=== PATIENT | male | born 1940 | race Caucasian/White ===

== ENCOUNTER 2024-05-24 15:30 | Emergency (ER) | payer MEDICARE, OTHER ==
[2024-05-24 16:43] LABS: BASOPHILS ABSOLUTE AUTO 0.04 K/uL (0.00-0.10); BASOPHILS PERCENT AUTO 0.4 % (0.1-1.3); EOSINOPHILS ABSOLUTE AUTO 0.14 K/uL (0.00-0.40); EOSINOPHILS PERCENT AUTO 1.5 % (0.0-5.4); HEMATOCRIT 39.7 % (38.4-49.7); HEMOGLOBIN 13.8 g/dL (12.9-16.9); IMMATURE GRAN ABSOLUTE AUTO 0.09 K/uL (0.00-0.23); LYMPHOCYTES PERCENT AUTO 23.7 % (11.4-47.7); MEAN CORPUSCULAR HEMOGLOBIN 31.7 pg (31.6-35.5); MEAN CORPUSCULAR HGB CONC 34.8 g/dL (31.6-35.5); MEAN CORPUSCULAR VOLUME 91.3 fL (81.4-99.0); MONOCYTES ABSOLUTE AUTO 0.85 K/uL (0.20-0.90); MONOCYTES PERCENT AUTO 9.2 % (3.3-12.6); NEUTROPHILS ABSOLUTE AUTO 5.95 K/uL (1.0-7.6); NEUTROPHILS PERCENT AUTO 64.2 % (40.0-78.1); PLATELET COUNT,PLT 152 K/uL (130-375); RED BLOOD CELL COUNT 4.35 M/uL (4.14-5.76); WHITE BLOOD CELL COUNT,WBC 9.3 K/uL (3.2-11.0)
[2024-05-24 16:54] LABS: ANION GAP 12.4 mmol/L (5.0-14.0); CALCIUM 8.8 mg/dL (8.5-10.1); CREATININE 1.4 mg/dL (0.8-1.3); EST CRCL DRUG DOSING (CG) 36.07 mL/min; POTASSIUM,K 4.4 mmol/L (3.6-5.2); TROPONIN I HIGH SENSITIVITY 9.9 pg/mL (<=60.3)
== END 2024-05-24 20:00 | disposition other institution (70) ==
LOC: JP.ED 15:30
DX: I44.2 Atrioventricular block, complete (principal); I10 Essential (primary) hypertension; E78.00 Pure hypercholesterolemia, unspecified; Z88.0 Allergy status to penicillin; Z91.040 Latex allergy status; Z88.8 Allergy status to other drugs, medicaments and biological substances; Z91.013 Allergy to seafood; Z79.82 Long term (current) use of aspirin; Z79.899 Other long term (current) drug therapy
CPT/HCPCS: 36415; 80048; 83735; 84484; 85025; 93005; 93010; 99285

== ENCOUNTER 2025-02-26 10:32 | Emergency (ER) | payer MEDICARE, MEDICAID ==
[2025-02-26] MEDS: Norepinephrine Bit/D5W Premix 4 MG in Premix Bag 1 BAG IV SCH (11:11)
[2025-02-26] MEDS: Sodium Chloride 0.9% 1,000 ML IV STA (11:12)
[2025-02-26 11:17] LABS: BASOPHILS ABSOLUTE AUTO 0.03 K/uL (0.00-0.10); BASOPHILS PERCENT AUTO 0.3 % (0.1-1.3); EOSINOPHILS ABSOLUTE AUTO 0.08 K/uL (0.00-0.40); EOSINOPHILS PERCENT AUTO 0.8 % (0.0-5.4); HEMOGLOBIN 8.1 g/dL (12.9-16.9); IMMATURE GRAN ABSOLUTE AUTO 0.07 K/uL (0.00-0.23); IMMATURE GRAN PERCENT AUTO 0.7 % (0.0-0.7); LYMPHOCYTES ABSOLUTE AUTO 1.67 K/uL (0.8-3.3); LYMPHOCYTES PERCENT AUTO 16.4 % (11.4-47.7); MEAN CORPUSCULAR HEMOGLOBIN 32.3 pg (31.6-35.5); MEAN CORPUSCULAR HGB CONC 32.4 g/dL (31.6-35.5); MEAN CORPUSCULAR VOLUME 99.6 fL (81.4-99.0); MONOCYTES ABSOLUTE AUTO 0.73 K/uL (0.20-0.90); MONOCYTES PERCENT AUTO 7.2 % (3.3-12.6); NEUTROPHILS ABSOLUTE AUTO 7.59 K/uL (1.0-7.6); NEUTROPHILS PERCENT AUTO 74.6 % (40.0-78.1); PLATELET COUNT,PLT 186 K/uL (130-375); RED BLOOD CELL COUNT 2.51 M/uL (4.14-5.76); WHITE BLOOD CELL COUNT,WBC 10.2 K/uL (3.2-11.0)
[2025-02-26 11:41] LABS: A/G RATIO 0.8 (1.2-2.2); ALANINE AMINOTRANSFERASE,ALT 22 U/L (12-78); ALBUMIN 2.4 g/dL (3.4-5.0); ALKALINE PHOSPHATASE 82 U/L (46-116); ASPARTATE AMNIOTRANSFERASE,AST 40 U/L (15-37); BILIRUBIN TOTAL 0.4 mg/dL (0.2-1.0); BLOOD UREA NITROGEN,BUN 49 mg/dL (7-18); CALCIUM 8.4 mg/dL (8.5-10.1); CARBON DIOXIDE,CO2 23 mmol/L (21-32); CHLORIDE,CL 106 mmol/L (100-108); CREATININE 1.8 mg/dL (0.8-1.3); EST CRCL DRUG DOSING (CG) 28.05 mL/min; ESTIMATED GFR 36 mL/min (>60); GLUCOSE RANDOM 168 mg/dL (74-106); POTASSIUM,K 4.5 mmol/L (3.6-5.2); PROTEIN TOTAL,TP 5.6 g/dL (6.4-8.2); SODIUM,NA 139 mmol/L (140-148)
[2025-02-26 11:44] LABS: ANION GAP 14.5 mmol/L (5.0-14.0)
[2025-02-26 12:06] LABS: APPEARANCE,URINE TURBID (CLEAR); BILIRUBIN,URINE NEGATIVE (NEGATIVE); COLOR,URINE YELLOW (YELLOW); GLUCOSE,URINE NEGATIVE (NEGATIVE); KETONES,URINE NEGATIVE (NEGATIVE); LEUKOCYTE ESTERASE,URINE LARGE (NEGATIVE); NITRITE,URINE NEGATIVE (NEGATIVE); OCCULT BLOOD,URINE MODERATE (NEGATIVE); PROTEIN,URINE 100 mg/dL (NEGATIVE); UROBILINOGEN,URINE 0.2 EU/dL (0.2-1.0)
[2025-02-26 12:21] LABS: AMORPHOUS SEDIMENT,URINE NOT SEEN; BACTERIA,URINE FEW; EPITHELIAL CELLS,URINE RARE; MUCUS,URINE NOT SEEN; RBC,URINE 20-30 (0-5); WBC,URINE >100 (0-5)
[2025-02-26] MEDS ORDERED: Cefepime 1 GM Vial IM ONE (12:25)
[2025-02-26] MEDS: Cefepime 1 GM in Sodium Chloride 0.9% 50 ML IV ONE (12:59)
== END 2025-02-26 13:05 ==
LOC: JP.ED 10:32
DX: I24.9 Acute ischemic heart disease, unspecified (principal); I10 Essential (primary) hypertension; E78.00 Pure hypercholesterolemia, unspecified; Z91.040 Latex allergy status; Z88.0 Allergy status to penicillin; Z91.018 Allergy to other foods; Z88.8 Allergy status to other drugs, medicaments and biological substances; Z91.013 Allergy to seafood; Z79.899 Other long term (current) drug therapy
CPT/HCPCS: 36415; 71045; 80053; 81001; 83605; 84484; 85025; 87040; 87086; 93005; 96361; 96365; 96366; 96374; 99285; J0692; J7030

== ENCOUNTER 2025-03-18 10:23 | Inpatient (IN) | payer MEDICARE, MEDICAID ==
[2025-03-18 10:36] LABS: BASOPHILS ABSOLUTE AUTO 0.03 K/uL (0.00-0.10); BASOPHILS PERCENT AUTO 0.2 % (0.1-1.3); EOSINOPHILS PERCENT AUTO 0.1 % (0.0-5.4); HEMATOCRIT 25.1 % (38.4-49.7); HEMOGLOBIN 7.9 g/dL (12.9-16.9); IMMATURE GRAN ABSOLUTE AUTO 0.09 K/uL (0.00-0.23); IMMATURE GRAN PERCENT AUTO 0.6 % (0.0-0.7); LYMPHOCYTES ABSOLUTE AUTO 0.33 K/uL (0.8-3.3); LYMPHOCYTES PERCENT AUTO 2.2 % (11.4-47.7); MEAN CORPUSCULAR HEMOGLOBIN 31.9 pg (31.6-35.5); MEAN CORPUSCULAR HGB CONC 31.5 g/dL (31.6-35.5); MEAN CORPUSCULAR VOLUME 101.2 fL (81.4-99.0); MONOCYTES ABSOLUTE AUTO 0.84 K/uL (0.20-0.90); MONOCYTES PERCENT AUTO 5.7 % (3.3-12.6); NEUTROPHILS PERCENT AUTO 91.2 % (40.0-78.1); PLATELET COUNT,PLT 166 K/uL (130-375); RED BLOOD CELL COUNT 2.48 M/uL (4.14-5.76); WHITE BLOOD CELL COUNT,WBC 14.8 K/uL (3.2-11.0)
[2025-03-18 10:39] LABS: EOSINOPHILS ABSOLUTE AUTO 0.01 K/uL (0.00-0.40)
[2025-03-18 11:02] LABS: A/G RATIO 0.5 (1.2-2.2); ALBUMIN 1.9 g/dL (3.4-5.0); BILIRUBIN DIRECT 0.73 mg/dL (0.0-0.2); BILIRUBIN INDIRECT 0.37; BILIRUBIN TOTAL 1.1 mg/dL (0.2-1.0); CALCIUM 7.7 mg/dL (8.5-10.1); EST CRCL DRUG DOSING (CG) 9.07 mL/min; POTASSIUM,K 4.6 mmol/L (3.6-5.2); PROTEIN TOTAL,TP 5.4 g/dL (6.4-8.2)
[2025-03-18 11:12] LABS: ANION GAP 17.6 mmol/L (5.0-14.0); C-REACTIVE PROTEIN 26.93 mg/dL (<0.50)
[2025-03-18] MEDS: Sodium Chloride 0.9% 1,000 ML IV ONE (11:13)
[2025-03-18 11:16] LABS: CREATININE 4.2 mg/dL (0.8-1.3); LACTIC ACID 2.9 mmol/L (0.4-2.0)
[2025-03-18] MEDS: cefTRIAXone 2 GM in Sodium Chloride 0.9% 50 ML IV ONE (11:36)
[2025-03-18 12:38] LABS: APPEARANCE,URINE CLOUDY (CLEAR); BILIRUBIN,URINE NEGATIVE (NEGATIVE); COLOR,URINE YELLOW (YELLOW); GLUCOSE,URINE 250 mg/dL (NEGATIVE); KETONES,URINE NEGATIVE (NEGATIVE); LEUKOCYTE ESTERASE,URINE LARGE (NEGATIVE); NITRITE,URINE NEGATIVE (NEGATIVE); OCCULT BLOOD,URINE LARGE (NEGATIVE); PH,URINE 5.5 (5.0-8.0); PROTEIN,URINE >=300 mg/dL (NEGATIVE); UROBILINOGEN,URINE 0.2 EU/dL (0.2-1.0)
[2025-03-18] MEDS: metroNIDAZOLE/Normal Saline 500 MG in Premix Bag 1 BAG IV ONE (12:40)
[2025-03-18 12:49] LABS: AMORPHOUS SEDIMENT,URINE FEW; BACTERIA,URINE MANY; EPITHELIAL CELLS,URINE NOT SEEN; MUCUS,URINE MANY; RBC,URINE 20-30 (0-5); WBC,URINE 75-100 (0-5)
[2025-03-18] MEDS: VANCOmycin 1 GM in Sodium Chloride 0.9% 250 ML IV ONE (13:28)
[2025-03-18] MEDS ORDERED: traZODone 50 MG Tab PO PRN (15:11)
[2025-03-18] MEDS ORDERED: LORazepam 2 MG/ML SDV IV PRN (15:11)
[2025-03-18] MEDS ORDERED: Sodium Chloride 0.9% 10 ML Syringe FLUSH PRN (15:11)
[2025-03-18] MEDS ORDERED: Albuterol 0.083% 2.5 MG/3 ML Neb Soln NEB PRN (15:11)
[2025-03-18] MEDS: Acetaminophen 325 MG Tab PO PRN (15:33)
[2025-03-18] MEDS: oxyCODONE 5 MG Tab PO PRN (15:33)
[2025-03-18] MEDS: Pantoprazole 40 MG Tab.CR PO SCH (16:27)
[2025-03-18] MEDS: Midodrine 5 MG Tab PO SCH (16:27)
[2025-03-18] MEDS: Doxycycline 100 MG in Sodium Chloride 0.9% 100 ML IV SCH (16:31)
[2025-03-18] MEDS: Sodium Chloride 0.9% 1,000 ML IV SCH (17:49)
[2025-03-18] MEDS: atorvaSTATin 20 MG Tab PO SCH (20:00)
[2025-03-18] MEDS: Gabapentin 100 MG Cap PO SCH (20:01)
[2025-03-18] MEDS ORDERED: Non-Formulary Medication 1 Each (Atorvastatin Calcium [Atorvastatin Calcium] 40 MG Tablet) PO SCH (21:00)
[2025-03-18] MEDS ORDERED: Memantine 5 MG Tab PO SCH (21:00)
[2025-03-19 05:48] LABS: HEMOGLOBIN 7.6 g/dL (12.9-16.9); MEAN CORPUSCULAR HEMOGLOBIN 31.9 pg (31.6-35.5); MEAN CORPUSCULAR HGB CONC 31.7 g/dL (31.6-35.5); MEAN CORPUSCULAR VOLUME 100.8 fL (81.4-99.0); RED BLOOD CELL COUNT 2.38 M/uL (4.14-5.76); WHITE BLOOD CELL COUNT,WBC 10.6 K/uL (3.2-11.0)
[2025-03-19 06:00] LABS: CALCIUM 7.5 mg/dL (8.5-10.1); EST CRCL DRUG DOSING (CG) 12.02 mL/min; MAGNESIUM 1.7 mg/dL (1.8-2.4); POTASSIUM,K 4.3 mmol/L (3.6-5.2)
[2025-03-19 06:09] LABS: ANION GAP 19.3 mmol/L (5.0-14.0)
[2025-03-19 06:10] LABS: CREATININE 4.2 mg/dL (0.8-1.3)
[2025-03-19] MEDS ORDERED: Sodium Chloride 0.9% 1,000 ML IV SCH (08:00)
[2025-03-19] MEDS: buPROPion 150 MG Tab.ER PO SCH (08:13)
[2025-03-19] MEDS: Polyethylene Glycol 3350 Powder 17 GM Packet PO PRN (08:14)
[2025-03-19] MEDS: Amiodarone 200 MG Tab PO SCH (08:14)
[2025-03-19] MEDS: Clopidogrel 75 MG Tab PO SCH (08:14)
[2025-03-19] MEDS ORDERED: Empagliflozin 10 MG Tab PO SCH (09:00)
[2025-03-19] MEDS ORDERED: Non-Formulary Medication 1 Each (Bupropion Hcl [Wellbutrin Xl] 300 MG Tab.Er.24h) PO SCH (09:00)
[2025-03-19] MEDS: Sodium Chloride 0.9% 1,000 ML IV SCH (10:17)
[2025-03-19] MEDS: Magnesium Sulfate 2 GM/50 mL 2 GM in Premix Bag 1 BAG IV SCH (10:17)
[2025-03-19] MEDS: cefTRIAXone 2 GM in Sodium Chloride 0.9% 50 ML IV SCH (11:42)
[2025-03-19] MEDS ORDERED: cefTRIAXone 1 GM in Sodium Chloride 0.9% 50 ML IV SCH (12:00)
[2025-03-19] MEDS: Magnesium Oxide 400 MG Tab PO SCH (20:24)
[2025-03-20 06:07] LABS: HEMATOCRIT 23.9 % (38.4-49.7); HEMOGLOBIN 7.6 g/dL (12.9-16.9); MEAN CORPUSCULAR HEMOGLOBIN 31.5 pg (31.6-35.5); MEAN CORPUSCULAR HGB CONC 31.8 g/dL (31.6-35.5); MEAN CORPUSCULAR VOLUME 99.2 fL (81.4-99.0); RED BLOOD CELL COUNT 2.41 M/uL (4.14-5.76)
[2025-03-20 06:26] LABS: CALCIUM 7.6 mg/dL (8.5-10.1); EST CRCL DRUG DOSING (CG) 14.03 mL/min; MAGNESIUM 1.9 mg/dL (1.8-2.4)
[2025-03-20 06:29] LABS: CREATININE 3.6 mg/dL (0.8-1.3)
[2025-03-20] MEDS: cefTRIAXone 2 GM in Sodium Chloride 0.9% 50 ML IV SCH (11:25)
[2025-03-21 06:00] LABS: HEMATOCRIT 24.1 % (38.4-49.7); HEMOGLOBIN 7.7 g/dL (12.9-16.9); MEAN CORPUSCULAR HEMOGLOBIN 31.4 pg (31.6-35.5); MEAN CORPUSCULAR VOLUME 98.4 fL (81.4-99.0); RED BLOOD CELL COUNT 2.45 M/uL (4.14-5.76); WHITE BLOOD CELL COUNT,WBC 7.2 K/uL (3.2-11.0)
[2025-03-21 06:17] LABS: CALCIUM 7.8 mg/dL (8.5-10.1); CREATININE 2.7 mg/dL (0.8-1.3); EST CRCL DRUG DOSING (CG) 18.65 mL/min; POTASSIUM,K 3.8 mmol/L (3.6-5.2)
[2025-03-21 06:21] LABS: ANION GAP 16.8 mmol/L (5.0-14.0)
[2025-03-21] MEDS ORDERED: Amiodarone 200 MG Tab PO SCH (09:00)
[2025-03-21] MEDS: Meropenem 500 MG in Sodium Chloride 0.9% 50 ML IV SCH (10:30)
[2025-03-22 05:48] LABS: HEMATOCRIT 25.5 % (38.4-49.7); HEMOGLOBIN 8.1 g/dL (12.9-16.9); MEAN CORPUSCULAR HEMOGLOBIN 31.3 pg (31.6-35.5); MEAN CORPUSCULAR HGB CONC 31.8 g/dL (31.6-35.5); MEAN CORPUSCULAR VOLUME 98.5 fL (81.4-99.0); RED BLOOD CELL COUNT 2.59 M/uL (4.14-5.76)
[2025-03-22 05:59] LABS: CALCIUM 8.1 mg/dL (8.5-10.1); CREATININE 2.4 mg/dL (0.8-1.3); EST CRCL DRUG DOSING (CG) 20.99 mL/min
[2025-03-22] MEDS: Amiodarone 200 MG Tab PO SCH (08:03)
[2025-03-23 05:57] LABS: HEMATOCRIT 26.4 % (38.4-49.7); HEMOGLOBIN 8.4 g/dL (12.9-16.9); MEAN CORPUSCULAR HEMOGLOBIN 31.3 pg (31.6-35.5); MEAN CORPUSCULAR HGB CONC 31.8 g/dL (31.6-35.5); MEAN CORPUSCULAR VOLUME 98.5 fL (81.4-99.0); RED BLOOD CELL COUNT 2.68 M/uL (4.14-5.76); WHITE BLOOD CELL COUNT,WBC 9.1 K/uL (3.2-11.0)
[2025-03-23 06:07] LABS: CALCIUM 8.3 mg/dL (8.5-10.1); CREATININE 1.9 mg/dL (0.8-1.3); EST CRCL DRUG DOSING (CG) 26.51 mL/min
[2025-03-23] MEDS: Meropenem 1 GM in Sodium Chloride 0.9% 100 ML IV SCH (10:56)
[2025-03-24 05:58] LABS: ANION GAP 9.6 mmol/L (5.0-14.0); CALCIUM 8.2 mg/dL (8.5-10.1); CREATININE 1.7 mg/dL (0.8-1.3); EST CRCL DRUG DOSING (CG) 29.63 mL/min
[2025-03-25 05:58] LABS: ANION GAP 9.5 mmol/L (5.0-14.0); CALCIUM 8.1 mg/dL (8.5-10.1); CREATININE 1.6 mg/dL (0.8-1.3); EST CRCL DRUG DOSING (CG) 31.48 mL/min
[2025-03-25] MEDS: Ertapenem 1 GM in Sodium Chloride 0.9% 50 ML IV SCH (09:37)
== END 2025-03-25 11:30 | DRG 871 ==
LOC: JP.ED 10:23 → JP.MS 13:42
PROVIDERS: ADMIT Hospitalist; ATTEND Internal Medicine
PROC: 3E03329 Introduction of Other Anti-infective into Peripheral Vein, Percutaneous Approach (ICD-10-PCS; principal; 2025-03-18)
PROC: 0T9B70Z Drainage of Bladder with Drainage Device, Via Natural or Artificial Opening (ICD-10-PCS; 2025-03-18)
PROC: 02HV33Z Insertion of Infusion Device into Superior Vena Cava, Percutaneous Approach (ICD-10-PCS; 2025-03-24)
DX: A41.9 Sepsis, unspecified organism (principal); I10 Essential (primary) hypertension; A41.51 Sepsis due to Escherichia coli [E. coli]; J18.9 Pneumonia, unspecified organism; Z91.013 Allergy to seafood; N17.9 Acute kidney failure, unspecified; N13.6 Pyonephrosis; Z91.09 Other allergy status, other than to drugs and biological substances; N13.8 Other obstructive and reflux uropathy; F03.93 Unspecified dementia, unspecified severity, with mood disturbance; F03.94 Unspecified dementia, unspecified severity, with anxiety; Z66 Do not resuscitate; R65.20 Severe sepsis without septic shock; J30.9 Allergic rhinitis, unspecified; H54.7 Unspecified visual loss; J32.9 Chronic sinusitis, unspecified; E78.00 Pure hypercholesterolemia, unspecified; E86.0 Dehydration; I25.10 Atherosclerotic heart disease of native coronary artery without angina pectoris; I12.9 Hypertensive chronic kidney disease with stage 1 through stage 4 chronic kidney disease, or unspecified chronic kidney disease; N18.30 Chronic kidney disease, stage 3 unspecified; I95.9 Hypotension, unspecified; D63.1 Anemia in chronic kidney disease; N40.1 Benign prostatic hyperplasia with lower urinary tract symptoms; R33.8 Other retention of urine; R09.02 Hypoxemia; I11.0 Hypertensive heart disease with heart failure; M62.81 Muscle weakness (generalized); G89.29 Other chronic pain; D72.829 Elevated white blood cell count, unspecified; E78.5 Hyperlipidemia, unspecified; F03.90 Unspecified dementia, unspecified severity, without behavioral disturbance, psychotic disturbance, mood disturbance, and anxiety; I50.9 Heart failure, unspecified; I25.5 Ischemic cardiomyopathy; Z88.0 Allergy status to penicillin; Z88.8 Allergy status to other drugs, medicaments and biological substances; Z79.899 Other long term (current) drug therapy; Z98.890 Other specified postprocedural states; Z90.49 Acquired absence of other specified parts of digestive tract; Z91.040 Latex allergy status; Z87.891 Personal history of nicotine dependence; Z85.820 Personal history of malignant melanoma of skin; Z95.5 Presence of coronary angioplasty implant and graft; Z79.1 Long term (current) use of non-steroidal anti-inflammatories (NSAID); Z90.89 Acquired absence of other organs
CPT/HCPCS: 36415 ×2; 71045 ×2; 74176 ×2; 80048 ×2; 80076; 81001; 83605; 84484; 85025; 85027; 86140; 87040 ×2; 87077 ×2; 87186 ×2; 93005; 93010; 96365; 96367; 96375; 99285 ×2; J0696; J1836; J7030; J7050; P9604; 36569; 83735; 92610-GN; 97110-GP; 97161-GP; 97165-GO; 97530-GP; 97535-GO; 99223; 99233; 99238; A9270-GY; C1751; C1758; J1335; J2185; J3475; J3490

== ENCOUNTER 2025-04-16 11:46 | Inpatient (IN) | payer MEDICARE, MEDICAID ==
[2025-04-16 12:40] LABS: BASOPHILS ABSOLUTE AUTO 0.06 K/uL (0.00-0.10); BASOPHILS PERCENT AUTO 0.5 % (0.1-1.3); HEMATOCRIT 33.9 % (38.4-49.7); HEMOGLOBIN 10.8 g/dL (12.9-16.9); IMMATURE GRAN ABSOLUTE AUTO 0.13 K/uL (0.00-0.23); IMMATURE GRAN PERCENT AUTO 1.2 % (0.0-0.7); LYMPHOCYTES ABSOLUTE AUTO 0.84 K/uL (0.8-3.3); LYMPHOCYTES PERCENT AUTO 7.6 % (11.4-47.7); MEAN CORPUSCULAR HEMOGLOBIN 31.2 pg (31.6-35.5); MEAN CORPUSCULAR HGB CONC 31.9 g/dL (31.6-35.5); MONOCYTES ABSOLUTE AUTO 0.75 K/uL (0.20-0.90); MONOCYTES PERCENT AUTO 6.8 % (3.3-12.6); NEUTROPHILS ABSOLUTE AUTO 9.29 K/uL (1.0-7.6); NEUTROPHILS PERCENT AUTO 83.9 % (40.0-78.1); PLATELET COUNT,PLT 199 K/uL (130-375); RED BLOOD CELL COUNT 3.46 M/uL (4.14-5.76); WHITE BLOOD CELL COUNT,WBC 11.1 K/uL (3.2-11.0)
[2025-04-16 13:01] LABS: A/G RATIO 0.7 (1.2-2.2); ALANINE AMINOTRANSFERASE,ALT 22 U/L (12-78); ALBUMIN 2.5 g/dL (3.4-5.0); ALKALINE PHOSPHATASE 225 U/L (46-116); ASPARTATE AMNIOTRANSFERASE,AST 19 U/L (15-37); BILIRUBIN TOTAL 0.8 mg/dL (0.2-1.0); BLOOD UREA NITROGEN,BUN 15 mg/dL (7-18); CALCIUM 8.5 mg/dL (8.5-10.1); CARBON DIOXIDE,CO2 26 mmol/L (21-32); CHLORIDE,CL 99 mmol/L (100-108); CREATININE 1.7 mg/dL (0.8-1.3); EST CRCL DRUG DOSING (CG) 29.16 mL/min; ESTIMATED GFR 39 mL/min (>60); GLUCOSE RANDOM 85 mg/dL (74-106); POTASSIUM,K 4.3 mmol/L (3.6-5.2); PROTEIN TOTAL,TP 6.1 g/dL (6.4-8.2); SODIUM,NA 132 mmol/L (140-148)
[2025-04-16 13:02] LABS: ANION GAP 11.3 mmol/L (5.0-14.0)
[2025-04-16] MEDS: Sodium Chloride 0.9% 500 ML IV ONE (13:08)
[2025-04-16] MEDS: Albuterol/Ipratropium 3.0-0.5 MG/3 ML Neb Soln NEB ONE (13:46)
[2025-04-16] MEDS: methylPREDNISolone Sodium Succinate 40 MG/1 ML SDV IVPUSH ONE (13:46)
[2025-04-16] MEDS: Sodium Chloride 0.9% 10 ML Syringe FLUSH PRN (13:46)
[2025-04-16] MEDS: Sodium Chloride 0.9% 100 ML IV SCH (15:07)
[2025-04-16] MEDS: Iopamidol 755 Mg/ML 100 ML Bottle IV SCH (15:08)
[2025-04-16] MEDS ORDERED: LORazepam 2 MG/ML SDV IVPUSH PRN (16:39)
[2025-04-16] MEDS ORDERED: Ondansetron 4 MG Tab.DIS PO PRN (16:39)
[2025-04-16] MEDS ORDERED: Ondansetron 4 MG/2 ML SDV IV PRN (16:39)
[2025-04-16] MEDS ORDERED: Magnesium Hydroxide 400 MG/5 ML Susp 30 ML Cup PO PRN (16:39)
[2025-04-16] MEDS ORDERED: Sennosides/Docusate Sodium 50-8.6 MG Tab PO PRN (16:39)
[2025-04-16] MEDS ORDERED: Prochlorperazine 10 MG/2 ML SDV IVPUSH PRN (17:11)
[2025-04-16] MEDS ORDERED: traZODone 50 MG Tab PO PRN (17:13)
[2025-04-16] MEDS ORDERED: oxyCODONE 5 MG Tab PO PRN (17:13)
[2025-04-16] MEDS ORDERED: Loratadine 10 MG Tab PO PRN (17:21)
[2025-04-16] MEDS ORDERED: Insulin Lispro 100 Unit/ML 3 ML KwikPen SUBCUT SCH (17:30)
[2025-04-16] MEDS: Cefepime 2 GM in Sodium Chloride 0.9% 50 ML IV ONE (17:33)
[2025-04-16] MEDS: Sodium Chloride 0.9% 1,000 ML IV SCH (17:33)
[2025-04-16] MEDS: Sodium Chloride 0.9% 10 ML Syringe FLUSH ONE (17:34)
[2025-04-16 17:36] LABS: HEMOGLOBIN A1C 4.3 % (4.5-6.2)
[2025-04-16] MEDS: Lactobacillus Rhamnosus GG (Probiotic) Cap PO SCH (17:55)
[2025-04-16] MEDS ORDERED: Levofloxacin/Dextrose 5%-Water 750 MG in Premix Bag 1 BAG IV SCH (18:00)
[2025-04-16] MEDS: cefTRIAXone 2 GM in Sodium Chloride 0.9% 50 ML IV SCH (18:12)
[2025-04-16] MEDS: Azithromycin 500 MG in Sodium Chloride 0.9% 250 ML IV SCH (18:49)
[2025-04-16] MEDS: Midodrine 5 MG Tab PO SCH (20:58)
[2025-04-16] MEDS: atorvaSTATin 20 MG Tab PO SCH (20:58)
[2025-04-16] MEDS: Pantoprazole 40 MG Tab.CR PO SCH (20:59)
[2025-04-16] MEDS: Gabapentin 100 MG Cap PO SCH (20:59)
[2025-04-16] MEDS: Memantine 5 MG Tab PO SCH (20:59)
[2025-04-16] MEDS: Melatonin 3 MG Tab PO SCH (20:59)
[2025-04-17 05:46] LABS: HEMATOCRIT 31.2 % (38.4-49.7); HEMOGLOBIN 9.9 g/dL (12.9-16.9); MEAN CORPUSCULAR HEMOGLOBIN 31.2 pg (31.6-35.5); MEAN CORPUSCULAR HGB CONC 31.7 g/dL (31.6-35.5); MEAN CORPUSCULAR VOLUME 98.4 fL (81.4-99.0); RED BLOOD CELL COUNT 3.17 M/uL (4.14-5.76); WHITE BLOOD CELL COUNT,WBC 13.9 K/uL (3.2-11.0)
[2025-04-17] MEDS: guaiFENesin/Dextromethorphan 100-10 MG/5 ML Soln 10 ML Cup PO PRN (06:10)
[2025-04-17 06:14] LABS: A/G RATIO 0.6 (1.2-2.2); ALANINE AMINOTRANSFERASE,ALT 23 U/L (12-78); ALBUMIN 2.1 g/dL (3.4-5.0); ALKALINE PHOSPHATASE 188 U/L (46-116); ASPARTATE AMNIOTRANSFERASE,AST 17 U/L (15-37); BILIRUBIN TOTAL 0.4 mg/dL (0.2-1.0); BLOOD UREA NITROGEN,BUN 19 mg/dL (7-18); C-REACTIVE PROTEIN 13.22 mg/dL (<0.50); CALCIUM 8.1 mg/dL (8.5-10.1); CARBON DIOXIDE,CO2 26 mmol/L (21-32); CHLORIDE,CL 103 mmol/L (100-108); CREATININE 1.4 mg/dL (0.8-1.3); EST CRCL DRUG DOSING (CG) 35.41 mL/min; ESTIMATED GFR 49 mL/min (>60); GLUCOSE RANDOM 80 mg/dL (74-106); POTASSIUM,K 4.4 mmol/L (3.6-5.2); PROTEIN TOTAL,TP 5.6 g/dL (6.4-8.2); SODIUM,NA 137 mmol/L (140-148)
[2025-04-17 06:15] LABS: ANION GAP 12.4 mmol/L (5.0-14.0)
[2025-04-17] MEDS: Fluticasone NASAL Spray 16 GM Bottle NASBOTH SCH (10:06)
[2025-04-17] MEDS: Amiodarone 200 MG Tab PO SCH (10:07)
[2025-04-17] MEDS: Empagliflozin 10 MG Tab PO SCH (10:07)
[2025-04-17] MEDS: Clopidogrel 75 MG Tab PO SCH (10:07)
[2025-04-17] MEDS: buPROPion 150 MG Tab.ER PO SCH (10:08)
[2025-04-17] MEDS: methylPREDNISolone Sodium Succinate 40 MG/1 ML SDV IVPUSH SCH (10:08)
[2025-04-17] MEDS: Pantoprazole 40 MG Tab.CR PO SCH (15:33)
[2025-04-17] MEDS: Albuterol 0.083% 2.5 MG/3 ML Neb Soln NEB PRN (15:37)
[2025-04-18 05:46] LABS: HEMATOCRIT 33.4 % (38.4-49.7); HEMOGLOBIN 10.5 g/dL (12.9-16.9); MEAN CORPUSCULAR HEMOGLOBIN 30.7 pg (31.6-35.5); MEAN CORPUSCULAR HGB CONC 31.4 g/dL (31.6-35.5); MEAN CORPUSCULAR VOLUME 97.7 fL (81.4-99.0); RED BLOOD CELL COUNT 3.42 M/uL (4.14-5.76)
[2025-04-18 06:07] LABS: A/G RATIO 0.6 (1.2-2.2); ALANINE AMINOTRANSFERASE,ALT 23 U/L (12-78); ALBUMIN 2.2 g/dL (3.4-5.0); ALKALINE PHOSPHATASE 195 U/L (46-116); ASPARTATE AMNIOTRANSFERASE,AST 23 U/L (15-37); BILIRUBIN TOTAL 0.4 mg/dL (0.2-1.0); BLOOD UREA NITROGEN,BUN 21 mg/dL (7-18); C-REACTIVE PROTEIN 11.56 mg/dL (<0.50); CALCIUM 8.4 mg/dL (8.5-10.1); CARBON DIOXIDE,CO2 25 mmol/L (21-32); CHLORIDE,CL 105 mmol/L (100-108); CREATININE 1.2 mg/dL (0.8-1.3); EST CRCL DRUG DOSING (CG) 41.31 mL/min; ESTIMATED GFR 59 mL/min (>60); GLUCOSE RANDOM 94 mg/dL (74-106); PROTEIN TOTAL,TP 5.9 g/dL (6.4-8.2); SODIUM,NA 138 mmol/L (140-148)
[2025-04-18] MEDS: Piperacillin/Tazobactam/Dext 4.5 GM in Premix Bag 1 BAG IV ONE (12:58)
[2025-04-18] MEDS: Piperacillin/Tazobactam/Dext 4.5 GM in Premix Bag 1 BAG IV SCH (15:34)
[2025-04-18] MEDS: Furosemide 20 MG/2 ML VIAL IVPUSH ONE (16:28)
[2025-04-18] MEDS: Furosemide 20 MG/2 ML VIAL ONE (16:29)
[2025-04-18] MEDS: Albuterol/Ipratropium 3.0-0.5 MG/3 ML Neb Soln NEB ONE (18:24)
[2025-04-18] MEDS: Furosemide 40 MG/4 ML VIAL IVPUSH ONE (18:24)
[2025-04-18] MEDS: Furosemide 40 MG/4 ML VIAL ONE (18:25)
[2025-04-18] MEDS: Albuterol/Ipratropium 3.0-0.5 MG/3 ML Neb Soln ONE (18:34)
[2025-04-18 18:43] LABS: BICARBONATE,ARTERIAL 18.1 mmol/L (22.0-26.0); CARBOXYHEMOGLOBIN 2.2 % (0.0-1.6); METHEMOGLOBIN 0.7 %; O2 SATURATION ARTERIAL 91.3 % (95.0-98.0); OXYHEMOGLOBIN 88.7 %; PO2 ARTERIAL 68.5 mmHg (75.0-100.0)
[2025-04-18 18:45] LABS: BASOPHILS ABSOLUTE AUTO 0.02 K/uL (0.00-0.10); BASOPHILS PERCENT AUTO 0.1 % (0.1-1.3); HEMATOCRIT 37.2 % (38.4-49.7); HEMOGLOBIN 11.5 g/dL (12.9-16.9); IMMATURE GRAN ABSOLUTE AUTO 0.18 K/uL (0.00-0.23); IMMATURE GRAN PERCENT AUTO 0.9 % (0.0-0.7); LYMPHOCYTES PERCENT AUTO 4.6 % (11.4-47.7); MEAN CORPUSCULAR HEMOGLOBIN 30.6 pg (31.6-35.5); MEAN CORPUSCULAR HGB CONC 30.9 g/dL (31.6-35.5); MEAN CORPUSCULAR VOLUME 98.9 fL (81.4-99.0); MONOCYTES ABSOLUTE AUTO 0.56 K/uL (0.20-0.90); MONOCYTES PERCENT AUTO 2.9 % (3.3-12.6); NEUTROPHILS ABSOLUTE AUTO 17.84 K/uL (1.0-7.6); NEUTROPHILS PERCENT AUTO 91.5 % (40.0-78.1); PLATELET COUNT,PLT 295 K/uL (130-375); RED BLOOD CELL COUNT 3.76 M/uL (4.14-5.76); WHITE BLOOD CELL COUNT,WBC 19.5 K/uL (3.2-11.0)
[2025-04-18] MEDS: Morphine 2 MG/ML SYRINGE IVPUSH PRN (19:09)
[2025-04-18 19:12] LABS: CALCIUM 8.5 mg/dL (8.5-10.1); CREATININE 1.5 mg/dL (0.8-1.3); EST CRCL DRUG DOSING (CG) 33.05 mL/min
[2025-04-18] MEDS: Morphine 2 MG/ML SYRINGE ONE (19:19)
[2025-04-18] MEDS: Clindamycin in 0.9 % Sod Chlor 900 MG in Premix Bag 1 BAG IV SCH (20:29)
[2025-04-18] MEDS: cefTRIAXone 2 GM in Sodium Chloride 0.9% 50 ML IV SCH (21:50)
[2025-04-19 05:42] LABS: HEMATOCRIT 33.1 % (38.4-49.7); HEMOGLOBIN 10.6 g/dL (12.9-16.9); MEAN CORPUSCULAR VOLUME 96.8 fL (81.4-99.0); RED BLOOD CELL COUNT 3.42 M/uL (4.14-5.76); WHITE BLOOD CELL COUNT,WBC 14.9 K/uL (3.2-11.0)
[2025-04-19 06:01] LABS: A/G RATIO 0.6 (1.2-2.2); ALANINE AMINOTRANSFERASE,ALT 30 U/L (12-78); ALBUMIN 2.1 g/dL (3.4-5.0); ALKALINE PHOSPHATASE 185 U/L (46-116); ASPARTATE AMNIOTRANSFERASE,AST 34 U/L (15-37); BILIRUBIN TOTAL 0.5 mg/dL (0.2-1.0); BLOOD UREA NITROGEN,BUN 25 mg/dL (7-18); C-REACTIVE PROTEIN 9.13 mg/dL (<0.50); CALCIUM 8.6 mg/dL (8.5-10.1); CARBON DIOXIDE,CO2 28 mmol/L (21-32); CHLORIDE,CL 102 mmol/L (100-108); CREATININE 1.5 mg/dL (0.8-1.3); EST CRCL DRUG DOSING (CG) 33.05 mL/min; ESTIMATED GFR 45 mL/min (>60); GLUCOSE RANDOM 83 mg/dL (74-106); POTASSIUM,K 3.2 mmol/L (3.6-5.2); PROTEIN TOTAL,TP 5.9 g/dL (6.4-8.2); SODIUM,NA 139 mmol/L (140-148)
[2025-04-19 06:04] LABS: ANION GAP 12.2 mmol/L (5.0-14.0)
[2025-04-19] MEDS: Furosemide 20 MG/2 ML VIAL IVPUSH SCH (09:59)
[2025-04-20 06:03] LABS: HEMATOCRIT 31.2 % (38.4-49.7); MEAN CORPUSCULAR HEMOGLOBIN 30.9 pg (31.6-35.5); MEAN CORPUSCULAR HGB CONC 32.1 g/dL (31.6-35.5); MEAN CORPUSCULAR VOLUME 96.3 fL (81.4-99.0); RED BLOOD CELL COUNT 3.24 M/uL (4.14-5.76); WHITE BLOOD CELL COUNT,WBC 13.8 K/uL (3.2-11.0)
[2025-04-20 06:23] LABS: A/G RATIO 0.6 (1.2-2.2); ALANINE AMINOTRANSFERASE,ALT 43 U/L (12-78); ALKALINE PHOSPHATASE 180 U/L (46-116); ASPARTATE AMNIOTRANSFERASE,AST 55 U/L (15-37); BILIRUBIN TOTAL 0.4 mg/dL (0.2-1.0); BLOOD UREA NITROGEN,BUN 27 mg/dL (7-18); C-REACTIVE PROTEIN 5.16 mg/dL (<0.50); CALCIUM 8.2 mg/dL (8.5-10.1); CARBON DIOXIDE,CO2 32 mmol/L (21-32); CHLORIDE,CL 104 mmol/L (100-108); CREATININE 1.4 mg/dL (0.8-1.3); EST CRCL DRUG DOSING (CG) 35.41 mL/min; ESTIMATED GFR 49 mL/min (>60); GLUCOSE RANDOM 70 mg/dL (74-106); PROTEIN TOTAL,TP 5.6 g/dL (6.4-8.2); SODIUM,NA 141 mmol/L (140-148)
[2025-04-20 06:36] LABS: ANION GAP 7.7 mmol/L (5.0-14.0); POTASSIUM,K 2.7 mmol/L (3.6-5.2)
[2025-04-20] MEDS: Potassium Chloride 10 MEQ in Premix Bag 1 BAG IV SCH (07:27)
[2025-04-21 05:51] LABS: HEMOGLOBIN 10.8 g/dL (12.9-16.9); MEAN CORPUSCULAR HEMOGLOBIN 30.9 pg (31.6-35.5); MEAN CORPUSCULAR HGB CONC 31.8 g/dL (31.6-35.5); MEAN CORPUSCULAR VOLUME 97.1 fL (81.4-99.0); RED BLOOD CELL COUNT 3.5 M/uL (4.14-5.76); WHITE BLOOD CELL COUNT,WBC 12.9 K/uL (3.2-11.0)
[2025-04-21 06:10] LABS: A/G RATIO 0.6 (1.2-2.2); ALANINE AMINOTRANSFERASE,ALT 43 U/L (12-78); ALBUMIN 2.2 g/dL (3.4-5.0); ALKALINE PHOSPHATASE 189 U/L (46-116); ASPARTATE AMNIOTRANSFERASE,AST 35 U/L (15-37); BILIRUBIN TOTAL 0.4 mg/dL (0.2-1.0); BLOOD UREA NITROGEN,BUN 26 mg/dL (7-18); C-REACTIVE PROTEIN 4.39 mg/dL (<0.50); CALCIUM 8.4 mg/dL (8.5-10.1); CARBON DIOXIDE,CO2 31 mmol/L (21-32); CHLORIDE,CL 106 mmol/L (100-108); CREATININE 1.2 mg/dL (0.8-1.3); EST CRCL DRUG DOSING (CG) 41.31 mL/min; ESTIMATED GFR 59 mL/min (>60); GLUCOSE RANDOM 66 mg/dL (74-106); POTASSIUM,K 3.1 mmol/L (3.6-5.2); SODIUM,NA 143 mmol/L (140-148)
[2025-04-21 06:23] LABS: ANION GAP 9.1 mmol/L (5.0-14.0)
[2025-04-21] MEDS: Acetaminophen 325 MG Tab PO PRN (16:49)
[2025-04-21] MEDS: Docusate Sodium 100 MG Cap PO SCH (20:36)
[2025-04-21] MEDS: Cefdinir 300 MG Cap PO SCH (20:37)
[2025-04-21] MEDS: Doxycycline 100 MG Cap PO SCH (20:37)
[2025-04-22 05:59] LABS: HEMATOCRIT 34.3 % (38.4-49.7); HEMOGLOBIN 10.6 g/dL (12.9-16.9); MEAN CORPUSCULAR HEMOGLOBIN 30.4 pg (31.6-35.5); MEAN CORPUSCULAR HGB CONC 30.9 g/dL (31.6-35.5); MEAN CORPUSCULAR VOLUME 98.3 fL (81.4-99.0); RED BLOOD CELL COUNT 3.49 M/uL (4.14-5.76); WHITE BLOOD CELL COUNT,WBC 12.7 K/uL (3.2-11.0)
[2025-04-22 06:17] LABS: CALCIUM 8.7 mg/dL (8.5-10.1); CREATININE 1.1 mg/dL (0.8-1.3); EST CRCL DRUG DOSING (CG) 45.03 mL/min; POTASSIUM,K 3.1 mmol/L (3.6-5.2)
[2025-04-22 06:19] LABS: ANION GAP 11.1 mmol/L (5.0-14.0)
[2025-04-22] MEDS: Potassium Chloride 20 MEQ Tab.ER PO SCH (08:57)
== END 2025-04-22 12:54 | DRG 177 ==
LOC: JP.ED 11:46 → JP.MS 16:18 → JP.ICU 04-18 19:14
PROVIDERS: ADMIT Hospitalist; ATTEND Internal Medicine
PROC: 5A09357 Assistance with Respiratory Ventilation, Less than 24 Consecutive Hours, Continuous Positive Airway Pressure (ICD-10-PCS; principal; 2025-04-18)
PROC: 5A0935A Assistance with Respiratory Ventilation, Less than 24 Consecutive Hours, High Flow/Velocity Cannula (ICD-10-PCS; 2025-04-19)
DX: J69.0 Pneumonitis due to inhalation of food and vomit (principal); I50.43 Acute on chronic combined systolic (congestive) and diastolic (congestive) heart failure; J96.01 Acute respiratory failure with hypoxia; F03.93 Unspecified dementia, unspecified severity, with mood disturbance; F03.94 Unspecified dementia, unspecified severity, with anxiety; N17.9 Acute kidney failure, unspecified; Z66 Do not resuscitate; H54.7 Unspecified visual loss; I25.10 Atherosclerotic heart disease of native coronary artery without angina pectoris; E78.00 Pure hypercholesterolemia, unspecified; N40.0 Benign prostatic hyperplasia without lower urinary tract symptoms; E11.9 Type 2 diabetes mellitus without complications; K21.9 Gastro-esophageal reflux disease without esophagitis; I11.0 Hypertensive heart disease with heart failure; E87.6 Hypokalemia; Z85.820 Personal history of malignant melanoma of skin; Z98.49 Cataract extraction status, unspecified eye; Z95.0 Presence of cardiac pacemaker; Z87.442 Personal history of urinary calculi; Z95.5 Presence of coronary angioplasty implant and graft; Z88.8 Allergy status to other drugs, medicaments and biological substances; Z88.0 Allergy status to penicillin; Z91.040 Latex allergy status; Z91.048 Other nonmedicinal substance allergy status; Z91.013 Allergy to seafood; Z79.899 Other long term (current) drug therapy; Z79.52 Long term (current) use of systemic steroids; Z79.02 Long term (current) use of antithrombotics/antiplatelets; Z90.89 Acquired absence of other organs; Z98.890 Other specified postprocedural states
CPT/HCPCS: 36415; 71045 ×2; 71275 ×2; 80053; 83036; 83605; 84484; 85025; 85379; 87040 ×2; 87070; 87205; 94640; 96374; 99285; A9270; J2919; J7040; Q9967; U0002; 36600; 80048; 82803; 82947; 83735; 83880; 85027; 86140; 92526-GN; 92610-GN; 94660; 94667; 94668; 97110-GO; 97110-GP; 97161-GP; 97164-GP; 97165-GO; 97530-GP; 99223; 99232; 99239; J0456; J0696; J0737; J1938; J2270; J2543; J3480; J7030; J7050

== ENCOUNTER 2025-05-05 21:21 | Emergency (ER) | payer MEDICARE, MEDICAID ==
[2025-05-05] MEDS: Lidocaine 1% with EPINEPHrine 1:100,000 20 ML MDV INJECT ONE (21:48)
[2025-05-05] MEDS: Bacitracin Oint 1 GM U/D Packet TOP ONE (22:36)
== END 2025-05-05 23:00 ==
LOC: JP.ED 21:21
DX: S01.112A Laceration without foreign body of left eyelid and periocular area, initial encounter (principal); Z91.040 Latex allergy status; Z88.8 Allergy status to other drugs, medicaments and biological substances; Z91.018 Allergy to other foods; Z91.013 Allergy to seafood; Z91.048 Other nonmedicinal substance allergy status; W05.0XXA Fall from non-moving wheelchair, initial encounter; Y93.89 Activity, other specified; I25.10 Atherosclerotic heart disease of native coronary artery without angina pectoris; E78.00 Pure hypercholesterolemia, unspecified; I10 Essential (primary) hypertension; Z95.5 Presence of coronary angioplasty implant and graft
CPT/HCPCS: 12053; 99283; J2004

== ENCOUNTER 2025-09-13 13:46 | Emergency (ER) | payer MEDICARE, MEDICAID ==
[2025-09-13 14:44] LABS: APPEARANCE,URINE CLOUDY (CLEAR); GLUCOSE,URINE 500 mg/dL (NEGATIVE); OCCULT BLOOD,URINE MODERATE (NEGATIVE)
[2025-09-13 14:55] LABS: SQUAMOUS EPITHELIAL CELLS,UR RARE /HPF; UROTHELIAL CELLS,URINE NOT SEEN /HPF
[2025-09-13] MEDS: Acetaminophen/oxyCODONE 325-10 MG Tab PO PRN (16:57)
== END 2025-09-13 17:30 ==
LOC: JP.ED 13:46
DX: N39.0 Urinary tract infection, site not specified (principal); I25.10 Atherosclerotic heart disease of native coronary artery without angina pectoris; E78.00 Pure hypercholesterolemia, unspecified; I11.9 Hypertensive heart disease without heart failure; Z88.8 Allergy status to other drugs, medicaments and biological substances; Z91.040 Latex allergy status; Z88.0 Allergy status to penicillin; Z91.09 Other allergy status, other than to drugs and biological substances; Z91.013 Allergy to seafood; I25.2 Old myocardial infarction; Z95.5 Presence of coronary angioplasty implant and graft; Z79.899 Other long term (current) drug therapy; Z79.84 Long term (current) use of oral hypoglycemic drugs
CPT/HCPCS: 81001; 87086; 96365; 99283; A9270; J0290; 87088; 87186